=== PATIENT | female | born 1985 | race African-American/Black ===

== ENCOUNTER 2016-09-27 20:31 | Emergency (ER) | payer MEDICAID ==
[2016-09-27 20:33] VITALS: BP 130/85; PULSE 92; RESP 16; TEMP 98.9; O2SAT 99
--- NOTE | 2016-09-27 21:06 | PD ---
HPI . LLQ pain, nausea, vomiting and diarrhea x 1 day Chief Complaint: GI Complaint Time Seen by Provider: 21:06 Travel History International Travel<30 days: No Contact w/Intl Traveler<30days: No Traveled to known affect area: No History of Present Illness HPI 31 yr old female with no pmh here with c/o LLQ abdominal pain, nausea, vomiting and diarrhea for one day. Patient tells me that she had 3 episodes of vomiting today. She also 3 episodes of diarrhea. She rates the pain as 7/10, but declines any pain medication. She is requesting something for nausea. She denies contact with any other sick individuals. She admits to some dysuria for the past several weeks, but denies any increased frequency or other urinary changes. She has no other complaints. Her last menstrual cycle started on September 17 and ended on September 24. PFSH Past Medical History Diminished Hearing: No Reproductive: Yes Immunizations Current: No Seizures: Yes (CHILDHOOD) ?: Not LMP: 08/17/16 : 2 Para: 2 Past Surgical History Section: Yes Social History Alcohol Use: No Tobacco Use: No Substance Use: No Allergies-Medications (Allergen,Severity, Reaction): Coded Allergies: Bactrim (Verified Allergy, Severe, HIVES, 09/27/16) Reported Meds & Prescriptions Reported Meds & Active Scripts Active No Active Prescriptions or Reported Medications Review of Systems General / Constitutional: No: Fever Eyes: No: Visual changes HENT: No: Headaches Cardiovascular: No: Chest Pain or Discomfort Respiratory: No: Shortness of Breath Gastrointestinal: Positive: Nausea, Vomiting, Diarrhea, Abdominal Pain (LLQ) Genitourinary: Positive: Dysuria Musculoskeletal: No: Pain Skin: No Rash Neurologic: No: Weakness Psychiatric: No: Depression Endocrine: No: Polydipsia Hematologic/Lymphatic: No: Easy Bruising Physical Exam Narrative GENERAL: AAO x 3, no acute distress, Well-nourished, well-developed patient. SKIN: Warm and dry. No visible rashes or bruising. HEAD: Normocephalic and atraumatic. EYES: No scleral icterus. No injection or drainage. EOM intact, PERRLA ENT: No nasal drainage noted. Mucous membranes pink. Airway patent. Moist mucous membranes. Normal oropharynx NECK: Supple, trachea midline. No JVD. CARDIOVASCULAR: Regular rate and rhythm without murmurs, gallops, or rubs. RESPIRATORY: Breath sounds equal bilaterally. No accessory muscle use. No rhonchi or rales. GASTROINTESTINAL: Abdomen soft, left lower quadrant tenderness on deep palpation. No rebound or guarding. Negative Ramos's sign. Negative McBurney point tenderness. EXTREMITIES: No cyanosis or edema. BACK: Nontender without obvious deformity. No CVA tenderness. NEURO: CN II-12 intact, health and safety manager strength normal b/l, UE and LE 5/5, no focal deficits PSYCH: AAO x 3, normal affect. Data Data Last Documented VS Vital Signs Date Time Temp Pulse Resp B/P Pulse Ox O2 Delivery O2 Flow Rate FiO2 09/27/16 21:20 99 Room Air 09/27/16 20:33 98.9 92 16 130/85 Orders Complete Blood Count With Diff (09/27/16 21:10) Comprehensive Metabolic Panel (09/27/16 21:10) Lipase (09/27/16 21:10) Urinalysis - C+S If Indicated (09/27/16 21:10) Iv Access Insert/Monitor (09/27/16 21:10) Ecg Monitoring (09/27/16 21:10) Oximetry (09/27/16 21:10) Sodium Chloride 0.9% Flush (Ns Flush) (09/27/16 21:15) Ondansetron Inj (Zofran Inj) (09/27/16 21:15) Ed Urine Pregnancytest Poc (09/27/16 21:15) Ibuprofen (Motrin) (09/27/16 22:30) Labs Laboratory Tests Test 09/27/16 09/27/16 21:18 22:20 White Blood Count 7.8 TH/MM3 Red Blood Count 5.70 MIL/MM3 Hemoglobin 10.5 GM/DL Hematocrit 33.9 % Mean Corpuscular Volume 59.6 FL Mean Corpuscular Hemoglobin 18.4 PG Mean Corpuscular Hemoglobin 30.9 % Concent Red Cell Distribution Width 17.5 % Platelet Count 236 TH/MM3 Mean Platelet Volume 9.9 FL Neutrophils (%) (Auto) 79.5 % Lymphocytes (%) (Auto) 14.8 % Monocytes (%) (Auto) 5.3 % Eosinophils (%) (Auto) 0.1 % Basophils (%) (Auto) 0.3 % Neutrophils # (Auto) 6.2 TH/MM3 Lymphocytes # (Auto) 1.2 TH/MM3 Monocytes # (Auto) 0.4 TH/MM3 Eosinophils # (Auto) 0.0 TH/MM3 Basophils # (Auto) 0.0 TH/MM3 CBC Comment DIFF FINAL Differential Comment Sodium Level 136 MEQ/L Potassium Level 3.7 MEQ/L Chloride Level 103 MEQ/L Carbon Dioxide Level 22.1 MEQ/L Anion Gap 11 MEQ/L Blood Urea Nitrogen 14 MG/DL Creatinine 0.80 MG/DL Estimat Glomerular Filtration 102 ML/MIN Rate Random Glucose 83 MG/DL Calcium Level 9.4 MG/DL Total Bilirubin 0.5 MG/DL Aspartate Amino Transf 25 U/L (AST/SGOT) Alanine Aminotransferase 20 U/L (ALT/SGPT) Alkaline Phosphatase 90 U/L Total Protein 8.7 GM/DL Albumin 3.8 GM/DL Lipase 83 U/L Urine Color YELLOW Urine Turbidity HAZY Urine pH 5.5 Urine Specific [place] 1.014 Urine Protein TRACE mg/dL Urine Glucose (UA) NEG mg/dL Urine Ketones 10 mg/dL Urine Occult Blood NEG Urine Nitrite NEG Urine Bilirubin NEG Urine Urobilinogen LESS THAN 2.0 MG/DL Urine Leukocyte Esterase SMALL Urine RBC 1 /hpf Urine WBC 5 /hpf Urine Squamous Epithelial 3 /hpf Cells Urine Bacteria RARE /hpf Urine Mucus FEW /lpf Microscopic Urinalysis Comment CULT NOT INDICATED MDM Medical Decision Making Medical Screen Exam Complete: Yes Emergency Medical Condition: Yes Medical Record Reviewed: Yes Differential Diagnosis gastroenteritis, enteritis, diverticulitis, colitis, UTI Narrative Course 31-year-old female here with complaints of left lower quadrant pain, nausea, vomiting and diarrhea. She also reports some dysuria. Examination is fairly unremarkable except for some mild left lower quadrant tenderness on deep palpation. Patient has no rebound or guarding. There is no evidence of appendicitis or gallbladder issues. IV access was obtained, labs and urinalysis were ordered. Those results, determination will be made whether or not to proceed with any imaging. At this point I feel imaging is not warranted. Zofran given for nausea. I have discussed the case with Dr. Bruno and he is in agreement with the stated treatment plan. [id number]: patient request Ibuprofen, which was provided labs thus far are unremarkable except for microcytic anemia that is chronic ( records reviewed) Urinalysis fairly unremarkable except for small leuks. Laboratory Tests Test 09/27/16 09/27/16 21:18 22:20 White Blood Count 7.8 TH/MM3 Red Blood Count 5.70 MIL/MM3 Hemoglobin 10.5 GM/DL Hematocrit 33.9 % Mean Corpuscular Volume 59.6 FL Mean Corpuscular Hemoglobin 18.4 PG Mean Corpuscular Hemoglobin 30.9 % Concent Red Cell Distribution Width 17.5 % Platelet Count 236 TH/MM3 Mean Platelet Volume 9.9 FL Neutrophils (%) (Auto) 79.5 % Lymphocytes (%) (Auto) 14.8 % Monocytes (%) (Auto) 5.3 % Eosinophils (%) (Auto) 0.1 % Basophils (%) (Auto) 0.3 % Neutrophils # (Auto) 6.2 TH/MM3 Lymphocytes # (Auto) 1.2 TH/MM3 Monocytes # (Auto) 0.4 TH/MM3 Eosinophils # (Auto) 0.0 TH/MM3 Basophils # (Auto) 0.0 TH/MM3 CBC Comment DIFF FINAL Differential Comment Sodium Level 136 MEQ/L Potassium Level 3.7 MEQ/L Chloride Level 103 MEQ/L Carbon Dioxide Level 22.1 MEQ/L Anion Gap 11 MEQ/L Blood Urea Nitrogen 14 MG/DL Creatinine 0.80 MG/DL Estimat Glomerular Filtration 102 ML/MIN Rate Random Glucose 83 MG/DL Calcium Level 9.4 MG/DL Total Bilirubin 0.5 MG/DL Aspartate Amino Transf 25 U/L (AST/SGOT) Alanine Aminotransferase 20 U/L (ALT/SGPT) Alkaline Phosphatase 90 U/L Total Protein 8.7 GM/DL Albumin 3.8 GM/DL Lipase 83 U/L Urine Color YELLOW Urine Turbidity HAZY Urine pH 5.5 Urine Specific [place] 1.014 Urine Protein TRACE mg/dL Urine Glucose (UA) NEG mg/dL Urine Ketones 10 mg/dL Urine Occult Blood NEG Urine Nitrite NEG Urine Bilirubin NEG Urine Urobilinogen LESS THAN 2.0 MG/DL Urine Leukocyte Esterase SMALL Urine RBC 1 /hpf Urine WBC 5 /hpf Urine Squamous Epithelial 3 /hpf Cells Urine Bacteria RARE /hpf Urine Mucus FEW /lpf Microscopic Urinalysis Comment CULT NOT INDICATED Results were discussed with the patient. She is feeling better. She's been provided a prescription for Zofran for nausea as needed. I advised if her symptoms do not improve, go to the nearest emergency department. She's been instructed to follow-up with primary care provider upon discharge. Patient verbalized understanding of instructions, questions were answered, and thanked me for their care. I advised them if their condition worsens, please return to the nearest emergency room for further care. Diagnosis Primary Impression: Gastroenteritis Patient Instructions: General Instructions Additional Instructions: Please return to emergency department if your symptoms return or worsen. Follow up with your primary care provider. Take medications as prescribed. You have an anemia and should follow up with your primary care provider. Med/Other Pt SpecificInfo: Prescription(s) given Scripts Ondansetron Odt (Zofran Odt)4 Mg Tab4 Mg SL Q8HR PRN (Nausea/Vomiting) #12 TAB Ref 0 Prov:Andres Bruno MD 09/27/16 Disposition: 01 DISCHARGE HOME Condition: Stable Suze Hanks Sep 27, 2016 21:06
[2016-09-27] MEDS ORDERED: SODIUM CHLORIDE 0.9% FLUSH 10 ML FLUSH IV FLUSH PRN (21:15)
[2016-09-27] MEDS ORDERED: ONDANSETRON HCL 4 MG/2 ML VIAL IV PUSH ONE (21:15)
[2016-09-27 21:20] VITALS: O2SAT 99
[2016-09-27 21:46] LABS: AUTOMATED NEUTROPHIL # 6.2 TH/MM3 (1.8-7.7); BASOPHIL % 0.3 % (0.0-2.0); EOSINOPHIL % 0.1 % (0.0-4.0); HEMATOCRIT 33.9 % (35.0-46.0); HEMO FLAGS DIFF FINAL; LYMPH % 14.8 % (9.0-44.0); LYMPHOCYTE # 1.2 TH/MM3 (1.0-4.8); MEAN CELL VOLUME 59.6 FL (80.0-100.0); MEAN CORPUSCULAR HEMOGLOBIN 18.4 PG (27.0-34.0); MEAN CORPUSCULAR HGB CONC 30.9 % (32.0-36.0); MONO % 5.3 % (0.0-8.0); NEUT % 79.5 % (16.0-70.0); PLATELET COUNT 236 TH/MM3 (150-450); RED CELL DISTRIBUTION WIDTH 17.5 % (11.6-17.2); WHITE BLOOD COUNT 7.8 TH/MM3 (4.0-11.0)
[2016-09-27 21:53] LABS: ALT (GPT) 20 U/L (10-53)
[2016-09-27 21:54] LABS: ANION GAP 11 MEQ/L (5-15); AST (GOT) 25 U/L (15-37); BICARBONATE 22.1 MEQ/L (21.0-32.0); BLOOD UREA NITROGEN 14 MG/DL (7-18); CHLORIDE 103 MEQ/L (98-107); GLOMERULAR FILTRATION RATE 102 ML/MIN (>89); POTASSIUM 3.7 MEQ/L (3.5-5.1); SODIUM (NA) 136 MEQ/L (136-145)
[2016-09-27 21:55] LABS: ALKALINE PHOSPHATASE 90 U/L (45-117); TOTAL BILIRUBIN ADULT 0.5 MG/DL (0.2-1.0)
[2016-09-27] MEDS ORDERED: IBUPROFEN 800 MG TAB PO ONE (22:30)
[2016-09-27 22:32] LABS: BACTERIA, URINE RARE /hpf; BLOOD, URINE NEG (NEG); COMMENT (UR) CULT NOT INDICATED; CULTURE IF INDICATED CULT NOT INDICATED; GLUCOSE,URINE NEG (NEG); KETONE, URINE 10 mg/dL (NEG); MUCUS URINE FEW /lpf (OCC); NITRITE,URINE NEG (NEG); PH, URINE 5.5 (5.0-8.5); SQUAMOUS EPITHELIAL CELL URINE 3 /hpf (0-5); URINE COLOR YELLOW (YELLW/STRAW)
[2016-09-27] MEDS ORDERED: ZOFR4TAB3 SL (22:36)
== END 2016-09-27 23:20 | disposition home or self-care (01) ==
LOC: NEPC 20:31
DX: K52.9 Noninfective gastroenteritis and colitis, unspecified (principal)
CPT/HCPCS: 80053; 81001; 83690; 84703; 85025; 96374; 99284; J2405